=== PATIENT | female | born 1975 | race Hispanic/Latino ===

== ENCOUNTER 2019-07-26 20:06 | Emergency (ER) | payer BC ==
[~2019-07-26] VITALS: Ht 160 cm; Wt 62.6 kg
--- OUTSIDE RECORDS SUMMARY | 2019-07-26 20:08 | XMS REPORT ---
Author Author [facility] Address Unknown Phone Unavailable Care Team Providers Care Machine Skiver Name Role Phone Skyler MORSE Unavailable Unavailable Problems This patient has no known problems. Allergies, Adverse Reactions, Alerts This patient has no known allergies or adverse reactions. Medications This patient has no known medications. Encounters Start Date/Time End Date/Time Encounter Type Admission Type Attending Clinicians Care Facility Care Department Encounter ID 2019-05-03 09:55:00 2019-05-03 05:21:00 Inpatient U [facility] [id number] Results Test Description Test Time Test Comments Text Results Atomic Results Result Comments CHEST SINGLE (PORTABLE) [address] [address] Patient Name: VICKI GREENBERG MR #: [id number] : 1975 Age/Sex: 41/F Req #: [id number] Adm Physician: Ordered by: ELIAS MORSE MD Report #: [id number] Location: ER Room/Bed: Procedure: [id number] DX/CHEST SINGLE (PORTABLE) Exam Date: 03/12/17 Exam Time: 1020 REPORT STATUS: Signed EXAMINATION: Chest, CHEST SINGLE (PORTABLE) INDICATION: Chest pain COMPARISON: None FINDINGS: LINES: None. Heart: Normal cardiac silhouette. Vascular: The pulmonary vasculature is within normal limits. Mediastinum: No mediastinal, hilar, or axillary mass or lymphadenopathy. Lungs: No parenchymal mass. No focal consolidation. Pleura: No pleural effusion. No pneumothorax. Bones: No acute osseous abnormality. Soft tissues: Normal. Impression: No acute radiographic abnormality. Signed by: Dr. Francisco Rizzo M.D. on 03/12/2017 10:38 AM Dictated By: FRANCISCO RIZZO MD [id number] Transcribed By: DEMI on 03/12/17 1038 COPY TO: ELIAS MORSE MD
[2019-07-26] MEDS ORDERED: DEXAMETHASONE SOD PHOS 10 MG/1 ML VIAL IM ONE (22:00)
[2019-07-26] MEDS ORDERED: TAMIFLU75 MG PO (22:02)
[2019-07-26] MEDS ORDERED: DEXAMETHASONE SOD PHOS 10 MG/1 ML VIAL ONE (22:03)
== END 2019-07-26 22:44 | disposition home or self-care (01) ==
LOC: FSED 20:06
DX: R50.9 Fever, unspecified (principal); R05 Cough; J11.1 Influenza due to unidentified influenza virus with other respiratory manifestations; H69.91 Unspecified Eustachian tube disorder, right ear
CPT/HCPCS: 83518 ×2; 96372; 99282; J1100